=== PATIENT | female | born 1980 | race Two or more races ===

== ENCOUNTER 2017-01-19 07:11 | Emergency (ER) | payer OTHER ==
--- NOTE | ~2017-01-19 | CR72 ---
[facility] A Service of [facility] & [facility] RADIOLOGY TEXT RESULTS PATIENT: TIARRA ONTIVEROS LOCATION: [facility] : 82 UNIT #: [id number] AGE: [address]: Mallory Saab SEX: F ORDER DR: [id number] [facility] [address] [place], [place] [address] [id number] E MR#: [id number] Acc #: [id number] NAME: TIARRA ONTIVEROS : 1980 SEX: F STUDY DATE/TIME: 01/19/2017 8:58 UNIT: [facility] ROOM: STUDY DESCRIPTION: CR Chest Single View Portable Attending Physician: Mallory Saab P.A.-C. Ordering Physician: Mallory Saab P.A.-C. Primary Care Physician: Primary Care Physician No MEDICAL IMAGING REPORT This report is preliminary unless electronic signature is present EXAM AP portable chest date: 01/19/2017 HISTORY Chest pain for 1 day. COMPARISON None. FINDINGS Low-volume inspiration. No acute airspace disease is seen. Heart size is within normal limits. No pleural effusion or pneumothorax is identified. IMPRESSION Low volume inspiration. No acute chest findings. Dictated by... Tessa Le M.D. THIS IS AN ELECTRONICALLY VERIFIED REPORT Tessa Le M.D. at 01/20/2017 9:41 AM SUMMER/emanuel TD: 01/19/2017 10:29 JOB #: [id number] MEDICAL IMAGING REPORT Page 1 of 1 COPY
--- NOTE | ~2017-01-19 | EKG ---
PATIENT: TIARRA ONTIVEROS UNIT #: [id number] Ventricular Rate: 69 BPM Atrial Rate: 69 BPM P-R Interval: 136 ms QRS Duration: 82 ms Q-T Interval: 384 ms QTC Calculation(Bezet): 411 ms P [place]: 63 degrees Calculated R [place]: 48 degrees Calculated T [place]: 33 degrees Diagnosis Line: Normal sinus rhythm Diagnosis Line: Normal ECG Diagnosis Line: No previous ECGs available Diagnosis Line: Confirmed by KATELYN MI MD ([id number]) on 01/21/2017 Diagnosis Line: 10:26:36 AM INTERPRETING MD: HIWOT MARROQUIN
[2017-01-19 08:25] LABS: BASOPHIL% 0.7 % (0-2.5); EOSINOPHIL# 0.1 X10e3 (0-0.7); EOSINOPHIL% 1.4 % (0.0-7.0); HEMATOCRIT 40.5 % (35.0-45.0); HEMOGLOBIN 13.7 gm/dL (12.0-16.0); LYMPHOCYTE# 2.7 X10e3 (1.0-3.5); LYMPHOCYTE% 40.6 % (17.0-45.0); MEAN CELL VOLUME 89.9 FL (83-96); MEAN CORPUSCULAR HEMOGLOBIN 30.5 PG (28-34); MEAN CORPUSCULAR HGB CONC 33.9 g/dL (30-36); MEAN PLATELET VOLUME 9.1 FL (6.5-11.5); MONOCYTE# 0.5 X10e3 (0-1.0); MONOCYTE% 6.9 % (3.0-12.0); NEUTROPHIL# 3.4 X10e3 (1.5-7.1); NEUTROPHIL% 50.4 % (40-75); PLATELET COUNT 313 X10e3 (140-420); RED BLOOD COUNT 4.51 X10e (3.90-5.30); RED CELL DISTRIBUTION WIDTH 13.7 % (11.0-15.5); WHITE BLOOD COUNT 6.7 X10e3 (4.0-10.5)
[2017-01-19 08:37] LABS: DIFF IND NO
[2017-01-19 09:09] LABS: URINE SOURCE CLEAN CATCH
[2017-01-19 09:15] LABS: URINE APPEARANCE CLEAR; URINE BILIRUBIN NEG (NEG); URINE BLOOD NEG (NEG); URINE COLOR YELLOW; URINE GLUCOSE NEG (NEG); URINE KETONE NEG (NEG); URINE LEUKOCYTE ESTERASE NEG (NEG); URINE NITRATE NEG (NEG); URINE PH 5.5 (5-8); URINE PROTEIN NEG (NEG); URINE SPECIFIC GRAVITY 1.012 (1.003-1.035); URINE UROBILINOGEN 0.2 MG/DL (NEG)
[2017-01-19 09:17] LABS: CULTURE INDICATED? NO
[2017-01-19 09:22] LABS: CALCIUM SERUM 9.1 mg/dL (8.4-10.2); CREATININE SERUM 0.6 mg/dL (0.6-1.4); GLOM FILT RATE Estimated 118.1 mL/min (>60); POTASSIUM 3.5 mmol/L (3.5-5.1)
[2017-01-19 09:30] LABS: POC - CKMB <1.0 ng/mL (0.0-7.9); POC - TROPONIN <0.05 ng/mL (<=0.05)
[2017-01-19 10:00] LABS: POC - CKMB <1.0 ng/mL (0.0-7.9); POC - TROPONIN <0.05 ng/mL (<=0.05)
[2017-01-19 10:13] LABS: ALBUMIN SERUM 3.6 g/dL (3.5-5.0); ALKALINE PHOSPHATASE 39 U/L (32-92); ALT (SGPT) 16 U/L (10-40); AST (SGOT) 25 U/L (10-42); BILIRUBIN,TOTAL 0.5 mg/dL (0.2-2.0); PROTEIN TOTAL SERUM 6.9 g/dL (6.0-8.3)
[2017-01-19 10:15] LABS: BILIRUBIN, DIRECT <0.1 mg/dL (0.0-0.2); BILIRUBIN,INDIRECT 0.4 mg/dL (0.0-0.9)
== END 2017-01-19 10:57 | disposition home or self-care (01) ==
LOC: CED 07:11
PROVIDERS: Physician Assistant
DX: R00.2 Palpitations (principal); R51 Headache; R73.9 Hyperglycemia, unspecified; Z88.7 Allergy status to serum and vaccine
CPT/HCPCS: 71010; 80048; 80076; 81003; 82553; 84484; 84703; 85025; 85379; 93005; 96361; 96374; 96375; 99284; J1885; J2060